=== PATIENT | female | born 1975 | race Caucasian/White ===

== ENCOUNTER → 2016-04-24 | Outpatient (REF) | payer BC | LOC: M LAB REF 12:22 | PROVIDERS: ATTEND Nurse Practitioner Adult Health | DX: A60.04 Herpesviral vulvovaginitis (principal) ==

== ENCOUNTER → 2016-11-25 | Outpatient (REF) | payer BC ==
[2016-11-25 14:30] LABS: FOLLICLE STIMULATING HORMONE 5.7 mIU/mL; LUTEINIZING HORMONE 6.6 mIU/mL
[2016-11-28 00:07] LABS: TESTOSTERONE %FREE+WEAKLY BOUN 18.3 % (3.0-18.0); TESTOSTERONE FREE+WEAKLY BOUND 6.2 ng/dL (0.0-9.5)
== END ==
LOC: M LAB REF 08:02
PROVIDERS: ATTEND Nurse Practitioner Adult Health
DX: N89.8 Other specified noninflammatory disorders of vagina (principal)